=== PATIENT | female | born 1960 | race Hispanic/Latino ===

== ENCOUNTER 2017-06-07 10:46 | Emergency (ER) | payer BC ==
[2017-06-07 11:39] LABS: BUN/Creatinine Ratio 11; Blood Urea Nitrogen 8 mg/dL (7-17); Calcium 8.9 mg/dL (8.4-10.2); Hemolysis Index 27
[2017-06-07 11:47] LABS: Basophils % (Auto) 0.4 % (0.0-1.8); Eosinophils # (Auto) 0.1 K/mm3 (0.0-0.4); Eosinophils % (Auto) 0.5 % (0.0-4.3); Hematocrit 39.4 % (30.3-42.9); Hemoglobin 13.2 gm/dl (10.1-14.3); Lymphocytes # (Auto) 1.1 K/mm3 (1.2-5.4); Lymphocytes % (Auto) 8.5 % (13.4-35.0); Mean Corpuscular HGB Conc 34 % (30-34); Mean Corpuscular Hemoglobin 29 pg (28-32); Mean Corpuscular Volume 86 fl (79-97); Monocytes # (Auto) 0.5 K/mm3 (0.0-0.8); Monocytes % (Auto) 4.1 % (0.0-7.3); Platelet Count 165 K/mm3 (140-440); Red Blood Count 4.61 M/mm3 (3.65-5.03); Red Cell Distribution Width 13.8 % (13.2-15.2)
--- NOTE | 2017-06-07 12:39 | XRay Report ---
CHEST 2 VIEWS INDICATION: Chest pain, shortness of breath. COMPARISON: None similar at this institution. FINDINGS: PA and lateral chest radiographs demonstrate normal cardiomediastinal silhouette. No pleural effusions or CHF. Approximately 6 mm left upper lobe probable calcified granuloma. Mild aortic knob calcifications. Osteopenia and mild thoracic spine degenerative spurring. CONCLUSION: No acute chest process with few incidental findings, as above. Please also correlate clinically and with prior chest imaging, if available. Thank you for the opportunity to participate in this patient's care.
[2017-06-07] MEDS ORDERED: PROVENTIL IH ONE (14:11)
[2017-06-07] MEDS ORDERED: TESSALON PERLES PO ONE (14:12)
[2017-06-07] MEDS ORDERED: NORCO 7.5/325 PO ONE (14:12)
[2017-06-07] MEDS ORDERED: ZOFRAN ODT PO ONE (14:12)
[2017-06-07] MEDS ORDERED: BABY ASPIRIN PO ONE (15:15)
--- NOTE | 2017-06-07 15:15 | Emergency Department Report ---
ED General Adult HPI - General Chief complaint: Chest Pain Stated complaint: CP/RADHA Time Seen by Provider: 06/07/17 13:47 Source: patient Mode of arrival: Ambulatory Limitations: No Limitations - History of Present Illness Initial comments: Patient presents to emergency department with anterior chest wall pain that started a week ago. Patient complains of a cough that is coarse in nature without production. Patient states she was seen in urgent care 7 days ago and diagnosed with an early onset pneumonia and given a breathing treatment and antibiotics for home. Patient states she has not felt better since she started her treatment. Patient denies any definitive symptoms better or worse. - Related Data Previous Rx's Medication Instructions Recorded Last Taken Type HYDROcodone/APAP 5-325 [Montreat 1 each PO Q6HR PRN #12 tablet 06/07/17 Unknown Rx 5/325] Hydrocodone/Chlorphen P-Stirex 480 ml PO Q12HR PRN #480 [email or web address] 06/07/17 Unknown Rx [Tussionex Pennkinetic Susp] Prednisone 50 mg PO QDAY #5 tablet 06/07/17 Unknown Rx Allergies Allergy/AdvReac Type Severity Reaction Status Date / Time cephalexin [From Keflex] Allergy Bleeding Verified 06/07/17 10:55 ED Review of Systems ROS: Stated complaint: CP/RADHA Other details as noted in HPI Constitutional: denies: chills, fever Eyes: denies: eye pain, eye discharge, vision change ENT: denies: ear pain, throat pain Respiratory: cough. denies: shortness of breath, wheezing Cardiovascular: chest pain. denies: palpitations Endocrine: no symptoms reported Gastrointestinal: denies: abdominal pain, nausea, diarrhea Genitourinary: denies: urgency, dysuria, discharge Musculoskeletal: denies: back pain, joint swelling, arthralgia Skin: denies: rash, lesions Neurological: denies: headache, weakness, paresthesias Psychiatric: denies: anxiety, depression Hematological/Lymphatic: denies: easy bleeding, easy bruising ED Past Medical Hx - Past Medical History Previous Medical History?: No Hx GERD: Yes Hx of Cancer: Yes (basal cell carcinoma) - Surgical History Past Surgical History?: Yes Additional Surgical History: hysterectomy. endometriosis - Social History Smoking Status: Current Every Day Smoker Substance Use Type: None - Medications Home Medications: Home Medications Medication Instructions Recorded Confirmed Last Taken Type HYDROcodone/APAP 5-325 [Montreat 1 each PO Q6HR PRN #12 tablet 06/07/17 Unknown Rx 5/325] Hydrocodone/Chlorphen P-Stirex 480 ml PO Q12HR PRN #480 [email or web address] 06/07/17 Unknown Rx [Tussionex Pennkinetic Susp] Prednisone 50 mg PO QDAY #5 tablet 06/07/17 Unknown Rx ED Physical Exam - General Limitations: No Limitations General appearance: alert, in no apparent distress - Head Head exam: Present: atraumatic, normocephalic - Eye Eye exam: Present: normal appearance - ENT ENT exam: Present: mucous membranes moist - Neck Neck exam: Present: normal inspection - Respiratory Respiratory exam: Present: normal lung sounds bilaterally. Absent: respiratory distress - Cardiovascular Cardiovascular Exam: Present: regular rate, normal rhythm. Absent: systolic murmur, diastolic murmur, rubs, gallop - GI/Abdominal GI/Abdominal exam: Present: soft, normal bowel sounds - Extremities Exam Extremities exam: Present: normal inspection - Back Exam Back exam: Present: normal inspection - Neurological Exam Neurological exam: Present: alert, oriented X3 - Psychiatric Psychiatric exam: Present: normal affect, normal mood - Skin Skin exam: Present: warm, dry, intact, normal color. Absent: rash ED Course Vital Signs 06/07/17 10:55 Temperature 99.2 F Pulse Rate 98 H Respiratory 20 Rate Blood Pressure 134/71 O2 Sat by Pulse 95 Oximetry ED Medical Decision Making - Lab Data Result diagrams: 06/07/17 11:04 06/07/17 11:04 - EKG Data -: EKG Interpreted by Me EKG shows normal: sinus rhythm Rate: normal - EKG Data Interpretation: no acute changes Critical care attestation.: If time is entered above; I have spent that time in minutes in the direct care of this critically ill patient, excluding procedure time. ED Disposition Clinical Impression: Nonspecific chest pain, Pleurisy Disposition: DC- TO HOME OR SELFCARE Is pt being admited?: No Does the pt Need Aspirin: Yes Condition: Stable Instructions: Chest Pain (ED) Prescriptions: HYDROcodone/APAP 5-325 [Montreat 5/325] 1 each PO Q6HR PRN #12 tablet PRN Reason: Pain Hydrocodone/Chlorphen P-Stirex [Tussionex Pennkinetic Susp] 480 ml PO Q12HR PRN #480 [email or web address] PRN Reason: Cough Prednisone 50 mg PO QDAY #5 tablet Referrals: BENJAMIN MORGAN MD [Staff Physician] - 3-5 Days Time of Disposition: 15:12
[2017-06-07 16:26] VITALS: BP 126/67
== END 2017-06-07 16:16 | disposition home or self-care (01) ==
LOC: ED 10:46
DX: R07.89 Other chest pain (principal); R09.1 Pleurisy; K21.9 Gastro-esophageal reflux disease without esophagitis; F17.200 Nicotine dependence, unspecified, uncomplicated; Z90.710 Acquired absence of both cervix and uterus; Z88.8 Allergy status to other drugs, medicaments and biological substances
CPT/HCPCS: 36415; 71046; 80048; 84484; 85025; 87040; 93005; 93010; 99284; Q0162

== ENCOUNTER 2017-09-11 19:16 | Emergency (ER) | payer BC, OTHER ==
[2017-09-11] MEDS ORDERED: BSS ONE (19:58)
[2017-09-11] MEDS ORDERED: FUL-GLO OP ONE (19:58)
[2017-09-11] MEDS ORDERED: TETRACAINE 0.5% ONE (19:58)
--- NOTE | 2017-09-11 20:41 | Emergency Department Report ---
ED Eye Problem HPI - General Chief complaint: Eye Problems Stated complaint: SEVERE EYE PAIN Time Seen by Provider: 09/11/17 20:10 Source: patient Mode of arrival: Ambulatory Limitations: No Limitations - History of Present Illness Initial comments: 56-year-old woman presents with 1 day history of persistent and progressive left eye pain, with only unusual activity was that she was saw on a tree with bow saw yesterday, but also was cleaning gutters, and reports that she had been doing some hammering and swinging tight captivity's, and when questioned about possible metallic foreign bodies, reports that this could've been possible. She describes pain as significant, being 8-10 out of 10, localized left eye, somewhat generalized, with significant exacerbation when she looks to her right , which pulls on her lateral muscles of the left eye. She is also significantly photophobic, and reports decreased vision, but is not blind, reporting that vision is mostly blurry. She has no difficulty with her right eye. She's not had any prior history of eye problems. Patient has COPD, secondary to tobacco use, has been coughing frequently, with some increased sputum production and moderately increased difficulty breathing. , somewhat discolored, but does not particularly relate her eye pain to her increase in coughing frequency. She requests chest x-ray for her coughing and increased difficulty breathing Onset/Timin -: days(s) Onset Description: gradual, unknown Location: left eye If Injury: other (patient unsure, was working outdoors, was cleaning gutters) Eye Symptoms: redness, pain, foreign body sensation, decreased vision, photophobia Severity: severe Severity scale (0 -10): 9 If Pain, Quality: aching, throbbing Consistency: constant Associated Symptoms: headache Treatments Prior to Arrival: none - Related Data Previous Rx's Medication Instructions Recorded Last Taken Type HYDROcodone/APAP 5-325 [[place]on 1 each PO Q6HR PRN #12 tablet 06/07/17 Unknown Rx 5/325] Hydrocodone/Chlorphen P-Stirex 480 ml PO Q12HR PRN #480 [email or web address] 06/07/17 Unknown Rx [Tussionex Pennkinetic Susp] Prednisone 50 mg PO QDAY #5 tablet 06/07/17 Unknown Rx Amoxicillin/Potassium Clav 1 each PO TID #30 tablet 09/12/17 Unknown Rx [Augmentin 875-125 Tablet] Famciclovir [Famvir Tab] 250 mg PO Q8H #21 tab 09/12/17 Unknown Rx Ipratropium/Albuterol Sulfate 1 ampul IH Q6HR PRN #100 ampul.neb 09/12/17 Unknown Rx [DUONEB *Not for PRN Use*] oxyCODONE /ACETAMINOPHEN [Percocet 1 - 2 tab PO Q6HR PRN #30 tablet 09/12/17 Unknown Rx 5/325] predniSONE [Deltasone] 50 mg PO QDAY #10 tab 09/12/17 Unknown Rx Allergies Allergy/AdvReac Type Severity Reaction Status Date / Time cephalexin [From Keflex] Allergy Bleeding Verified 06/07/17 10:55 ED Review of Systems ROS: Stated complaint: SEVERE EYE PAIN Other details as noted in HPI Constitutional: denies: chills, fever Eyes: eye pain (left, particularly with movement toward right), vision change ( left) ENT: denies: throat pain Respiratory: cough, wheezing Cardiovascular: denies: chest pain Endocrine: no symptoms reported Gastrointestinal: denies: abdominal pain, nausea, vomiting, diarrhea Genitourinary: as per HPI Musculoskeletal: denies: back pain, joint swelling, arthralgia Skin: denies: rash, lesions Neurological: headache. denies: weakness, paresthesias Psychiatric: denies: anxiety, depression Hematological/Lymphatic: denies: easy bleeding, easy bruising ED Past Medical Hx - Past Medical History Hx GERD: Yes Hx COPD: Yes Additional medical history: colitis - Surgical History Additional Surgical History: hysterectomy,right knee,right rotator cuff. endometriosis - Social History Smoking Status: Former Smoker Substance Use Type: None - Medications Home Medications: Home Medications Medication Instructions Recorded Confirmed Last Taken Type HYDROcodone/APAP 5-325 [Cameron 1 each PO Q6HR PRN #12 tablet 06/07/17 Unknown Rx 5/325] Hydrocodone/Chlorphen P-Stirex 480 ml PO Q12HR PRN #480 [email or web address] 06/07/17 Unknown Rx [Tussionex Pennkinetic Susp] Prednisone 50 mg PO QDAY #5 tablet 06/07/17 Unknown Rx Amoxicillin/Potassium Clav 1 each PO TID #30 tablet 09/12/17 Unknown Rx [Augmentin 875-125 Tablet] Famciclovir [Famvir Tab] 250 mg PO Q8H #21 tab 09/12/17 Unknown Rx Ipratropium/Albuterol Sulfate 1 ampul IH Q6HR PRN #100 ampul.neb 09/12/17 Unknown Rx [DUONEB *Not for PRN Use*] oxyCODONE /ACETAMINOPHEN [Percocet 1 - 2 tab PO Q6HR PRN #30 tablet 09/12/17 Unknown Rx 5/325] predniSONE [Deltasone] 50 mg PO QDAY #10 tab 09/12/17 Unknown Rx ED Physical Exam - General Limitations: No Limitations General appearance: alert, in distress (moderate discomfort from left eye, photophobic, wearing sunglasses, left eye patched prior to arrival by patient) - Head Head exam: Present: normocephalic, other (tender left tempero masseter area, temporal artery not enlarged, no increased pain with palpation, but in area on tenderness.) - Eye Eye exam: Present: PERRL, EOMI (pain with movement to right), conjunctival injection (no limbal flush), periorbital tenderness (modest to palpation). Absent: nystagmus, periorbital swelling Pupils: Present: normal accommodation - Expanded Eye Exam Expanded Eyelids: Normal Inspection: Right, Erythema: Left Pupils: Regular, Round: Bilateral, Reactive: Bilateral Sclera/Conjunctival: Injection: Left Posterior chamber: Deferred: Bilateral (patient unable to tolerate direct light) - ENT ENT exam: Present: normal exam, mucous membranes moist - Neck Neck exam: Present: normal inspection, full ROM. Absent: tenderness - Respiratory Respiratory exam: Present: wheezes (modest, bilateral), rhonchi (bilateral). Absent: chest wall tenderness, accessory muscle use - Cardiovascular Cardiovascular Exam: Present: regular rate, normal heart sounds - GI/Abdominal GI/Abdominal exam: Present: soft, normal bowel sounds. Absent: tenderness - Rectal Rectal exam: Present: deferred - Extremities Exam Extremities exam: Present: normal inspection - Neurological Exam Neurological exam: Present: alert, oriented X3, CN II-XII intact (slightly decreased vision due to blurriness on left eye, but able to realize fingers and describe movements with left eye tested in isolation, right eye normal, can read normally) ED Course Vital Signs 09/11/17 09/11/17 09/11/17 19:26 21:26 21:30 Temperature 36.8 C 36.6 C Pulse Rate 94 H 83 81 Respiratory 18 18 18 Rate Blood Pressure 126/74 120/55 Blood Pressure 109/78 [Left] O2 Sat by Pulse 92 97 96 Oximetry 09/11/17 09/11/17 22:00 23:01 Temperature Pulse Rate 80 81 Respiratory 17 17 Rate Blood Pressure 123/53 120/55 Blood Pressure [Left] O2 Sat by Pulse 93 94 Oximetry - Reevaluation(s) Reevaluation #1: 09/11/17 21:34 Patient medicated for discomfort, lungs auscultated at patient's request, with modest bilateral wheezes, some bilateral rhonchi, but fairly good respiratory exchange. Minimal sputum production ED Medical Decision Making - Radiology Data Radiology results: report reviewed (no acute abnormality on CT scan of orbit, no metallic foreign body, no swelling, no mass, globes appear normal bilaterally ), image reviewed - Medical Decision Making Patient has a painful red eye, with relatively intact vision, with 20/50 vision in left eye, 20/30 corrected in right eye, but with eye pain pain on movement, as well as left temporal masseter muscular tenderness to palpation, with associated conjunctival injection, but no limbal flush, and no visible foreign body either on lid inversion, with inspection performed twice, without abrasion or signs of corneal abnormality on fluorescein instillation after topical anesthesia with tetracaine, and normal intraocular pressures, being 15 and 19 on left eye measured twice, and 15 and 17 on the right eye, measured twice by Feliz-Pen. Funduscopic examination is unable to be performed due to patient's discomfort, but this likely can be deferred until patient can have full dilation and posterior examination by drying oven tender, which will show better visualization of the anatomy. Patient's history would suggest that she had a minor abrasion, but I cannot find evidence of soft, and the finding of a red eye with pain, which suggest a uveitis, patient has no history of inflammatory process, no prior eye symptoms, and no rheumatic history. Her left forehead tenderness would also suggest temporal arteritis, but the artery is not enlarged, and is not particularly tender, with patient reporting that the muscle in the temporal and masseter area is more tender than palpation along the artery. I would also be concerned about whether patient has a early onset of herpetic eruption, but there is no finding of burning on floor same examination, and no forehead rash, although patient reports some left forehead tenderness, this is been present for 2 weeks, without interim development of any rash. Finally, there is no evidence of anterior flare, CT scan is normal, there is no evidence of mass, foreign body, abscess, or muscular or nerve abnormality. I will start patient presumptively on steroids for the possibility of a temporal arteritis, and will also start presumptively on antibiotics, amoxicillin and clavulanate, which patient reports that she has taken, although she has a history of allergy to cephalexin, which she reported caused rectal bleeding as an isolated single event, but which was not associated with a Gen. penicillin related or cephalosporin allergy. She is given initial dose of Augmentin, as well as prednisone, and was treated copiously with analgesics, and will be discharged on same. As we do not have ophthalmologic or neurologic specialty consultation available , she will have to follow with her primary care physician, at [facility], for close evaluation in 24-48 hours, with referral to these 2 specialists. Finally, she has an exacerbation of COPD, and the steroids will treat this, as well as the Augmentin, and she should have recheck with her doctor of her coronary status and one or 2 days as well. - Differential Diagnosis foreign body,left corneal abrasion, uveitis, arteritis, neuritis, Critical Care Time: No Critical care attestation.: If time is entered above; I have spent that time in minutes in the direct care of this critically ill patient, excluding procedure time. ED Disposition Clinical Impression: Acute left eye pain, Forehead pain, COPD with acute exacerbation Disposition: TO HOME OR SELFCARE Is pt being admited?: No Does the pt Need Aspirin: No Condition: Stable Instructions: Chronic Obstructive Pulmonary Disease (ED), Eye Pain (ED) Additional Instructions: You have a sore left eye, but examination today shows no clear-cut cause of the soreness. Physical examination shows no direct finding of foreign body, or abrasion to the cornea, either by direct inspection, dye examination of the cornea, or inversion and inspection of the eyelid itself. There is also no findings of ulcerations, infection, or signs of viral infection , with no findings of any blistering, no ulcerations, and no skin eruptions suggestive of shingles either. Outer anterior portion of eye also appears normal with no findings suggestive of infection, or clouding. CT scan performed of the orbit shows no signs of foreign body, mass, or infection in the eye or in the eye socket. Ocular pressures are normal, being 15 and 19 on the left eye, and 15 and 17 on the right eye respectively, measured twice. There is no signs suggestive of glaucoma either. Our concern is that you could have early onset of shingles, with involvement of the eye, that we would've expected some form of inflammation or ulcers to be visible, and there were not. Nonetheless, we have started on medications in case this turns out to be the case. Take Famvir 3 times per day. Also concerned that you could have a form of inflammation of the inner eye structures, called uveitis, and we are starting you on steroids, which will also treat possibility of other inflammatory illnesses also. Take prednisone daily as prescribed while waiting for specialty examination. We are also concerned that there could be an inflammatory arterial condition called a temporal arteritis, and this needs further examination by a neurologist , and this will have to be arranged by her family practitioner, as we do not have neurologic specialty at this hospital. Steroids and pain medicine I've been started in any case, to prevent complications associated with this illness , this is the case. Examination shows a here tender in the left forehead area, but artery is not enlarged or particularly tender. You should have repeat examination by an ophthalmologic specialist within 1 or 2 days, but we do not have an ophthalmologic consult available at this hospital , and he will need to contact your primary care doctor to make arrangements to see one. We recommend expedited evaluation by an ophthalmologic specialist within 24-48 hours. We are prescribing antibiotics, Augmentin, to treat your exacerbation of COPD. We're prescribing steroids, 60 mg daily for the next week. This will help prevent inflammation. We're prescribing Famvir, as precaution in case of shingles/herpes infection. Were prescribing oxycodone for pain in the meantime, but relief of pain should not be equated with cure of process, and he still needs specialty examination with an drying oven tender and neurologist as soon as possible. Prescriptions: Amoxicillin/Potassium Clav [Augmentin 875-125 Tablet] 1 each PO TID #30 tablet Famciclovir [Famvir Tab] 250 mg PO Q8H #21 tab Ipratropium/Albuterol Sulfate [DUONEB *Not for PRN Use*] 1 ampul IH Q6HR PRN # 100 ampul.neb PRN Reason: Wheezing oxyCODONE /ACETAMINOPHEN [Percocet 5/325] 1 - 2 tab PO Q6HR PRN #30 tablet PRN Reason: Pain predniSONE [Deltasone] 50 mg PO QDAY #10 tab Referrals: PRIMARY CARE, [Primary Care Provider] - 3-5 Days Forms: Work/School Release Form(ED) Time of Disposition: 00:15
--- NOTE | 2017-09-11 21:20 | Cat Scan Report ---
FINAL REPORT PROCEDURE: CT ORBIT/EAR/FOSSA WO CON TECHNIQUE: Computerized axial tomography of the orbits was performed without contrast material. HISTORY: left eye pain, eval poss L intraocular FB COMPARISON: No prior studies are available for comparison. FINDINGS: Bones and sinuses: There is evidence of prior bilateral sinus surgery. Mild degree mucosal thickening is noted involving bilateral ethmoid sinuses. Globes: Normal. Extraocular muscles: Normal. Optic nerves: Normal. Lacrimal glands: Normal. There are no radiopaque foreign bodies IMPRESSION: No evidence of radiopaque foreign bodies Chronic bilateral ethmoid sinusitis
[2017-09-11] MEDS: MORPHINE IV PRN ×2 (21:47→23:15)
--- NOTE | 2017-09-11 22:15 | XRay Report ---
FINAL REPORT PROCEDURE: XR CHEST 1V AP TECHNIQUE: Chest radiograph anteroposterior view. CPT 98871 HISTORY: cough, sputum production, hx COPD COMPARISON: No prior studies are available for comparison. FINDINGS: Heart: Normal. Mediastinum/Vessels: Normal. Lungs/Pleural space: 5 millimeter calcified nodule is noted in the left upper lobe. Right lung and bilateral pleural spaces are clear.. Bony thorax: No acute osseous abnormality. Life support devices: None. IMPRESSION: Calcified nodule left upper is consistent with an old healed granuloma. No acute pulmonary process..
[2017-09-11] MEDS ORDERED: PERCOCET 5/325 PO ONE (23:39)
[2017-09-11] MEDS ORDERED: DELTASONE PO ONE (23:40)
[2017-09-11] MEDS ORDERED: AUGMENTIN 875 MG PO ONE (23:40)
[2017-09-12] MEDS ORDERED: FAMVIR PO ONE (00:19)
[2017-09-12 00:39] VITALS: BP 127/34
== END 2017-09-12 00:51 | disposition home or self-care (01) ==
LOC: ED 19:16
DX: H57.12 Ocular pain, left eye (principal); R05 Cough; R51 Headache; J44.1 Chronic obstructive pulmonary disease with (acute) exacerbation; K21.9 Gastro-esophageal reflux disease without esophagitis; Z90.710 Acquired absence of both cervix and uterus; Z87.891 Personal history of nicotine dependence; Z88.1 Allergy status to other antibiotic agents
CPT/HCPCS: 70480; 71045; 96374; 99284; J2270; J7512